=== PATIENT | female | born 1985 | race Caucasian/White ===

== ENCOUNTER 2024-08-27 13:37 | Outpatient (AMB) | payer OTHER, SELFPAY ==
--- NOTE | 2024-08-27 13:40 | MHC.PC.OV ---
Vital Signs 08/27/24 13:47 Height 5 ft 3.5 in Weight 161 lb 3 oz BMI 28.1 BP 104/64 Blood Pressure Location Rt brachial Position Sitting Respiration 12 Pulse 82 Pulse Source Pulse Oximeter Temp 98.4 F Temp Source Oral Pulse Oximetry (%) 100 Oxygen Delivery Method Room Air Intake Visit Reasons: Est. Care Intake Note: New patient visit Customer Care Specialist Required: No Allergies morphine Allergy (Severe, Verified 08/27/24 13:43) Hives Tobacco use date assessed: 08/27/24 Dental Screening Dental Screen Date: 08/27/24 Did you have a dental visit in the last 12 months?: Yes Did you have a dental problem in the last 6 months where you did not have access to dental care?: No Was dental information given to patient?: Patient has dentist HPI Est. Care HPI Details Patient is a 38-year-old female who presents today for a physical exam and to establish care. She says that she has never been diagnosed with anything significantly. 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 She states that for the last year she has had frequent heavy periods that are worse than they ever has been. She says that she bleeds for about 10 days. She has contacted her job developer in his hoping to see her this summer. She is not on any iron. No history of iron-deficiency anemia but does feel tired a lot. General: She does endorse feeling fatigue and states that she does have a lot of life stress but does not know if there is anything else that is happening. 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 She states that she eats healthy and tries to exercise every day with her Peloton. She is frustrated because she is unable to lose weight and says that if anything she appears to be gaining weight. 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 1. Little interest or pleasure in doing things: not at all 2. Feeling down, depressed, or hopeless: not at all 3. Trouble falling or staying asleep, or sleeping too much: several days 4. Feeling tired or having little energy: several days 5. Poor appetite or overeating: several days 6. Feeling bad about yourself - or that you are a failure or have let yourself or your family down: not at all 7. Trouble concentrating on things, such as reading the newspaper or watching television: not at all 8. Moving or speaking so slowly that other people could have noticed. Or the opposite - being so fidgety or restless that you have been moving around a lot more than usual: not at all 9. Thoughts that you would be better off or of hurting yourself in some way: not at all Total score: 3 Depression Screening Interpretation: Negative Depression Screening Done: Yes 44312 - PHQ-9 Billing: Yes Source: Developed by Drs. Tutu Victor, Bell Fuentes, Samuel Bhatia and colleagues, with an educational emilia from [employer]. Thrive Questionnaire Date Thrive assessed: 08/24/24 I am a: Patient What is your living situation today?: I have a steady place to live Within the past 12 months, did the food you bought not last and you didn't have the money to get more?: Never true Within the past 12 months, did you worry whether your food would run out before you got money to buy more?: Never true Do you have trouble paying for medicines?: No Do you have trouble getting transportation to medical appointments?: No Do you have trouble paying your heating and electricity bill?: No Do you have trouble taking care of your child, family member or friend?: No Do you have trouble with day-to-day activities such as bathing, preparing meals, shopping, managing finances, etc.?: No Are you currently unemployed and looking for a job?: No Are you interested in more education?: No Please select the resources that you would like help with: None Currently or been in a relationship where the following occur: No concerns reported THRIVE Score: 0 AUDIT C Alcohol Use Questionnaire (AUDIT-C) 1. How often do you have a drink containing alcohol?: 2-4 times a month 2. How many drinks containing alcohol do you have on a typical day when you are drinking?: 1 or 2 3. How often do you have six or more drinks on one occasion?: Never Total Score: 2 NARCISA-7 AMB Questionnaire NARCISA-7 Feeling nervous, anxious, or on edge: 1 = Several days Not being able to stop or control worryin = Several days Worrying too much about different things: 1 = Several days Trouble relaxin = Several days Being so restless that it is hard to sit still: 0 = Not at all Becoming easily annoyed or irritable: 1 = Several days Feeling afraid as if something awful might happen: 0 = Not at all Total NARCISA-7 score (0-4 normal; 5-9 mild; 10-14 moderate; 15-21 severe): 5 Source: Developed by Drs. Tutu Victor, Bell Fuentes, Samuel Bhatia and colleagues, with an educational emilia from [employer]. Physical exam (Primary Care) Vital Signs: Last Vital Signs Temp 98.4 F 08/27/24 13:47 Pulse 82 08/27/24 13:47 Resp 12 08/27/24 13:47 BP 104/64 08/27/24 13:47 Pulse Ox 100 08/27/24 13:47 Oxygen Delivery Method Room Air 08/27/24 13:47 BMI result Body Mass Index 28.1 Tobacco/Smoking Status: Tobacco use Status Tobacco use date assessed 08/27/24 08/27/24 13:49 Patient Tobacco Use Status Never used Tobacco 08/27/24 13:49 e-Cigarette/Vaping Use Never Used 08/27/24 13:49 PHQ-9: PHQ-9 Score PHQ-9: Total score 3 08/27/24 13:42 Depression Screening Interpretation: Negative Thrive Assessment: Date of Thrive Assessment Date Thrive assessed 08/24/24 08/27/24 13:42 Currently or been in a relationship where the following occur: No concerns reported Const Orientation/consciousness: patient oriented x3 HENMT Ears: hearing grossly normal bilaterally General nose exam: No nasal polyps present Face and sinus: Yes sinuses nontender Mouth: Normal oral and palatal mucosa present Eyes Pupils: Equal, round and reactive pupils present EOM: EOMs intact bilaterally Neck Neck: Yes full ROM and Yes no lymphadenopathy Thyroid: Thyroid normal Lymphatic: no lymphadenopathy noted Chest Chest palpation & inspection: normal inspection of the chest Resp Auscultation: clear to auscultation bilaterally Cardio Rate: regular rate Rhythm: regular rhythm Heart sounds: S1 normal heart sound present and S2 normal heart sound present Peripheral pulses: Peripheral pulses 2+ throughout GI Other: Soft, nontender Inspection: Yes normal to inspection Palpation (GI): Soft to palpation and Other GI palpation findings present (nontender, no cva tenderness) Auscultation: normoactive bowel sounds Rectal Exam - Female: deferred General: Yes no CVA tenderness Back/Spine/Pelvis Other: Nontender Back: no CVA tenderness Skin General skin exam: no rashes or lesions noted Neuro General: patient oriented x3, gait normal and no focal motor deficits Cranial nerves: Yes Equal, round and reactive pupils present Motor exam (neuro): 5/5 motor strength present throughout Sensory Exam: double simultaneous stimulation for sensation normal Coordination: [id number] test normal and Romberg test negative Extrem General: Yes normal to inspection and Yes full ROM Psych Affect: normal affect Attitude: cooperative Thought process: Normal thought process present Thought content: Normal thought content present Insight: Good insight present (Psych) Judgement: Good judgement present (Psych) Coding Level of Care Code New Pt Prev Care 40-64y(97512) Diagnoses Routine general health check-up of defined subpopulation Z00.8 Weight gain R63.5 Menorrhagia N92.0 Fatigue R53.83 Additional Codes PHQ-9 - 70749 - PHQ-9 Billing: Yes ([id number]) Assessment & Plan Assessment & Plan (1) Routine general health check-up of defined subpopulation: Code(s): Z00.8 - Encounter for other general examination Plan: reviewed labs ordered (2) Weight gain: Code(s): R63.5 - Abnormal weight gain Category: Medical Plan: labs ordered encouraged her to increase protein intake, eat less carbs, we discussed electrical unit rebuilder as well (3) Menorrhagia: Code(s): N92.0 - Excessive and frequent menstruation with regular cycle Category: Medical Plan: advised to follow with assistant maintenance manager labs ordered pelvic ultrasound ordered (4) Fatigue: Code(s): R53.83 - Other fatigue Category: Medical Plan: as above Orders: Orders Comprehensive [place]. Panel Fast Today N92.0 - Excessive and frequent menstruation with regular cycle, R63.5 - Abnormal weight gain Hemoglobin A1c Today N92.0 - Excessive and frequent menstruation with regular cycle, R63.5 - Abnormal weight gain, R73.01 - Impaired fasting glucose TSH reflex Free T4 Today N92.0 - Excessive and frequent menstruation with regular cycle, R63.5 - Abnormal weight gain Magnesium Today N92.0 - Excessive and frequent menstruation with regular cycle, R63.5 - Abnormal weight gain Complete Blood Count Auto Diff Today N92.0 - Excessive and frequent menstruation with regular cycle, R63.5 - Abnormal weight gain Lipid Panel Today N92.0 - Excessive and frequent menstruation with regular cycle, R63.5 - Abnormal weight gain Ferritin Today N92.0 - Excessive and frequent menstruation with regular cycle, R63.5 - Abnormal weight gain IRON PROFILE Today N92.0 - Excessive and frequent menstruation with regular cycle, R63.5 - Abnormal weight gain Vitamin B12 and Folate Today N92.0 - Excessive and frequent menstruation with regular cycle, R63.5 - Abnormal weight gain US pelvic and transvaginal Today N92.0 - Excessive and frequent menstruation with regular cycle
--- OUTSIDE RECORDS SUMMARY | 2024-08-27 13:44 | XMS_ITS | Clinical Summary ---
Author Organization [employer] Address [address] [facility] 7 [place] [address] Care Team Providers Care Precision Agriculture Technician Name Role Phone Unavailable Primary Care Provider Unavailabl e Allergies Active Allergy Reactions Criticality Noted Date Comments Morphine 09/27/2022 Medications No known medications Encounters Date Type Department Care Team Description 07/22/2024 11:00 AM EDT Office Visit [facility] DENTAL [address] [place] [address] Dea Klein Accrcain on teeth (Primary Dx); Dental calculus; Encounter for dental examination; Stage 2 grade A localized periodontitis per AAP/EFP 2017 classification from Last 3 Months Social History Tobacco Use Types Packs/Day Years Used Date Smoking Tobacco: Never Passive Smoke Exposure: Past Smokeless Tobacco: Never Tobacco Cessation:Counseling Given: No Comments Unknown Sex and Gender Information Value Date Recorded Sex Assigned at Choose not to disclose 05/2022 9:00 AM EDT Legal Sex Male 5:36 PM EDT Gender Identity Choose not to disclose 9:00 AM EDT Sexual Orientation Choose not to disclose 2022 9:00 AM EDT Plan of Treatment Upcoming Encounters Date Type Department Care Team (Late st Contact Info) Description 02/04/2025 3:00 PM EST Office Visit [facility] DENTAL [address] [place] [address] Ashleigh Proctor Health Maintenance Due Date Last Done Comments Depression Screening 1983 HIV Screening 1983 Lipid Panel 1983 SDOH Screening 1983 Disability Screening 1983 Alcohol/Substance Use Screening 1995 Family Planning (PISQ) 11/24/1998 Hepatitis C Screening 11/24/2001 DTaP/Tdap/Td Vaccines (1 - Tdap) 11/24/2002 Hepatitis B Vaccines (1 of 3 - 19+ 3-dose series) 11/24/2002 Dental X-Ray: Full Mouth 07/02/2023 06/30/2020 COVID-19 Vaccine (1 - 2023-2 5 season) 2023 Influenza Vaccine (#1) 2023 Dental Oral Exam 01/22/2025 07/22/2024, 06/13/2021, 06/30/2020 Dental Prophylaxis 01/22/2025 07/22/2024, 06/13/2021, 12/12/2020 Tobacco Screening 07/22/2025 07/22/2024 Dental X-Ray: Bitewings 07/23/2025 07/23/19 25, 06/30/2020 Zoster Vaccines (1 of 2) 11/24/2033 RSV Patients and Patients Aged 60 years or older (1 - 1-dose 75+ series) 11/24/2058 HIB Vaccines Aged Out No longer eligi ble based on patient's age to complete this topic HPV Vaccines Aged Out No longer eligi ble based on patient's age to complete this topic Hepatitis A Vaccines Aged Out No long er eligible based on patient's age to complete this topic IPV Vaccines Aged Out No longer eligi ble based on patient's age to complete this topic Meningococcal B Vaccine Aged Out No l onger eligible based on patient's age to complete this topic Meningococcal Vaccine Aged Out No peter palomo eligible based on patient's age to complete this topic Pneumococcal Vaccine: Pediatrics (0 to 5 Years) and At-Risk Patients (6 to 49) Years) Aged Out No longer eligible b ased on patient's age to complete this topic RSV under 20 months Aged Out No longe r eligible based on patient's age to complete this topic Rotavirus Vaccines Aged Out No longer eligible based on patient's age to complete this topic Procedures Procedure Name Priority Date/Time Associated Diagnosis Comments Full PROPHYLAXIS - ADULT Routine 025 11:00 AM EDT BITEWINGS - 4 RADIOGRAPHIC IMAGES Routine 07/22/2024 11:00 AM EDT PERIODIC ORAL EVALUATION - ESTABLISHED PATIENT Routine 07/22/2024 11:00 AM EDT INTRAORAL - COMPLETE SERIES OF RADIOGRAPHIC IMAGES Routine 06/30/2020 12:00 AM EDT from Last 3 Months or Most Recently Relevant to Health Maintenance Insurance DENTAL - HSN PARTIAL (MEDICAID)
[2024-08-27 13:47] VITALS: BP 104/64; PULSE 82; RESP 12; TEMP 36.9; O2SAT 100; BMI 28.1
== END 2024-08-27 14:22 | disposition home or self-care (01) ==
LOC: HO.HMCFM 13:38
PROVIDERS: PCP Physician Assistant; Visit Provider Physician Assistant
DX: Z00.00 Encounter for general adult medical examination without abnormal findings (principal); R63.5 Abnormal weight gain; N92.0 Excessive and frequent menstruation with regular cycle; R53.83 Other fatigue

== ENCOUNTER → 2024-08-27 13:37 | Outpatient (BNVA) | payer OTHER, SELFPAY | PROVIDERS: PCP Physician Assistant; Visit Provider Physician Assistant | DX: Z00.00 Encounter for general adult medical examination without abnormal findings (principal); R63.5 Abnormal weight gain; N92.0 Excessive and frequent menstruation with regular cycle; R53.83 Other fatigue | CPT/HCPCS: 96127; 99386 ==

== ENCOUNTER 2024-09-14 07:42 | Outpatient (REF) | payer OTHER, SELFPAY ==
--- OUTSIDE RECORDS SUMMARY | 2024-09-14 07:45 | XMS_ITS | Clinical Summary ---
Author Organization [employer] Address [address] [facility] [address] [place] [address] Care Team Providers Care Educational/Development Assistant Name Role Phone Unavailable Primary Care Provider Unavailabl e Allergies Active Allergy Reactions Criticality Noted Date Comments Morphine 09/27/2022 Medications No known medications Encounters Date Type Department Care Team Description 07/22/2024 11:00 AM EDT Office Visit [facility] DENTAL [address] [place] [address] Dea Klein Accrcain on teeth (Primary Dx); [...] Description 02/04/2025 3:00 PM EST Office Visit [facility] DENTAL [address] [place] [address] Ashleigh Proctor Health Maintenance Due Date Last [...] - 2023-2 5 season) 2023 Influenza Vaccine (Season Ended) 2024 Dental Oral Exam 01/22/2025 07/22/2024, 06/13/2021, 06/30/2020 [...]
[2024-09-14 11:15] LABS: MANUAL DIFF FLAG NO
[2024-09-14 11:24] LABS: Basophils Percent Auto 0.3 % (0-2); Eosinophils Absolute Auto 0.2 X10*3/uL (0.0-0.4); Eosinophils Percent Auto 4.6 % (0-4); Hematocrit 41.4 % (37.0-47.0); Imm Gran Abs Auto 0.02 X10*3/uL (0.00-0.03); Imm Gran Pct Auto 0.6 % (0.0-0.4); Lymphocytes Percent Auto 29.9 % (20-40); Mean Corpuscular HGB Conc 33.8 g/dl (31.0-35.0); Mean Corpuscular Hemoglobin 30.7 pg (27.0-33.0); Mean Corpuscular Volume 90.8 fL (80.0-98.0); Mean Platelet Volume 11.5 fL (9.4-12.3); Monocytes Absolute Auto 0.4 X10*3/uL (0.1-1.2); Monocytes Percent Auto 10.4 % (2-11); Neutrophils Absolute Auto 1.9 x10*3/uL (2.0-8.3); Neutrophils Percent Auto 54.2 % (45-73); Platelet Count 180 X10*3/uL (160-400); Red Blood Count 4.56 X10*6/uL (4.20-5.50); White Blood Count 3.5 X10*3/uL (4.8-10.8)
[2024-09-14 11:35] LABS: Estimated Average Glucose 103 mg/dL; Hemoglobin A1c % 5.2 % (<6.0); Total Hemoglobin (HGBA1C) 3637.2737 umol/L
[2024-09-14 11:44] LABS: Alanine Aminotransferase 15 U/L (0-31); Albumin Level 4.6 g/dL (3.5-5.0); Alkaline Phosphatase 70 U/L (39-117); Anion Gap 10 (12-20); Aspartate Amino Transferase 19 U/L (5-31); Bilirubin Total 0.3 mg/dL (0.0-1.0); Blood Urea Nitrogen 11 mg/dL (9-16); Calcium 9.3 mg/dL (8.4-10.2); Carbon Dioxide 25 mmol/L (22-29); Chloride 108 mmol/L (96-108); Cholesterol 179 mg/dL (<200); Estimated Glomerular Filt Rate > 60; Glucose Fasting 98 mg/dL (60-99); HDL Cholesterol 53 mg/dL (>40); Iron 67 mcg/dL (30-160); LDL Cholesterol Calculated 106 mg/dL (<100); Percent Iron Saturation 23 % (15-50); Potassium 3.7 mmol/L (3.3-5.1); Sodium 139 mmol/L (135-145); Total Iron Binding Capacity 290 mcg/dL (228-428); Total Protein 7.3 g/dL (6.5-8.0); Triglycerides 100 mg/dL (<150); Unsaturated Iron Binding 223 ug/dL
[2024-09-14 12:05] LABS: Ferritin 68 ng/mL (10-250); TSH reflex Free T4 1.03 uIU/mL (0.32-4.0)
[2024-09-14 12:09] LABS: Vitamin B12 319 pg/mL (200-900)
== END 2024-09-14 07:43 | disposition home or self-care (01) ==
LOC: HO.WFDLDS 07:42
PROVIDERS: Visit Provider Physician Assistant
DX: R73.01 Impaired fasting glucose (principal); N92.0 Excessive and frequent menstruation with regular cycle; R63.5 Abnormal weight gain
CPT/HCPCS: 36415; 80053; 80061; 82607; 82728; 82746; 83036; 83540; 83735; 84443; 85025

== ENCOUNTER 2024-11-16 14:49 | Outpatient (REF) | payer OTHER, SELFPAY ==
--- NOTE | ~2024-11-16 | US_ITS ---
EXAMINATION: US PELVIS TRANSABDOMINAL AND TRANSVAGINAL HISTORY: N92.0 - Excessive and frequent menstruation with regular cycle COMPARISON: There are no prior studies available for comparison. TECHNIQUE: Transabdominal and endovaginal real-time 2D cabral-scale ultrasound was performed. FINDINGS: Uterus: The uterus is normal in size, measuring 10.5 x 5.6 x 6.6 cm. Myometrium has a normal echotexture. No fibroids are identified. Endometrium: The endometrial stripe measures 10 mm in thickness. Right ovary: The right ovary measures 4.7 x 3.8 x 3.4 cm. There is a 3.4 x 3.2 x 3.1 cm cystic lesion demonstrating low-level internal echoes and septations, suggestive of a hemorrhagic cyst. Left ovary: The left ovary measures 2.8 x 1.6 x 2.7 cm. The left ovary is normal in size and echotexture. Pelvic fluid: none. US/US pelvic and transvaginal IMPRESSION: 3.4 x 3.2 x 3.1 cm probable right ovarian hemorrhagic cyst. A follow-up examination in 6 weeks, at a different time in the patient's menstrual cycle, is recommended. Electronically signed by: Tutu Ford MD 11/16/2024 03:22 PM EDT RP
--- OUTSIDE RECORDS SUMMARY | 2024-11-16 15:32 | XMS_ITS | Clinical Summary ---
Author Organization [employer] Address [address] [facility] [address] [place] [address] Care Team Providers Care Carpet Layer Helper Name Role Phone Unavailable Primary Care Provider Unavailabl e Allergies Active Allergy Reactions Criticality Noted Date Comments Morphine 09/27/2022 Medications No known medications Social History Tobacco Use Types Packs/Day Years [...] Description 02/04/2025 3:00 PM EST Office Visit [facility] DENTAL [address] [place] [address] Ashleigh Proctor Health Maintenance Due Date Last Done Comments Depression Screening 1983 HIV Screening 1983 Lipid Panel 1983 SDOH Screening 1983 Disability Screening 1983 Alcohol/Substance Use Screening 1995 Family Planning (PISQ) 11/24/1998 HPV Vaccines (1 - 3-dose series) 11/24/1998 Hepatitis C Screening 11/24/2001 DTaP/Tdap/Td Vaccines (1 - Tdap) 11/24/2002 Hepatitis B Vaccines (1 of 3 - 19+ 3-dose series) 11/24/2002 Dental X-Ray: Full Mouth 07/02/2023 06/30/2020 COVID-19 Vaccine (1 - 2023-2 5 season) 2023 Influenza Vaccine (#1) 2024 Dental Oral Exam 01/22/2025 07/22/2024, 06/13/2021, [...] Years) and At-Risk Patients (6 to 49) Years Aged Out No longer eligible b ased [...]
== END 2024-11-16 14:50 | disposition home or self-care (01) ==
LOC: HO.US 14:49
PROVIDERS: PCP Physician Assistant; Visit Provider Physician Assistant
DX: N92.0 Excessive and frequent menstruation with regular cycle (principal)
CPT/HCPCS: 76830; 76856

== ENCOUNTER → 2024-11-16 15:00 | Outpatient (BNV) | payer OTHER, SELFPAY | PROVIDERS: PCP Physician Assistant; Visit Provider Radiology Diagnostic Radiology | DX: N83.291 Other ovarian cyst, right side (principal) | CPT/HCPCS: 76830; 76856 ==

== ENCOUNTER 2024-11-17 09:00 | Outpatient (REF) | payer OTHER, SELFPAY ==
--- OUTSIDE RECORDS SUMMARY | 2024-11-17 09:53 | XMS_ITS | Clinical Summary ---
Author Organization [employer] Address [address] [facility] [address] [place] [address] Care Team Providers Care Direct Chill Casting Operator Name Role Phone Unavailable Primary Care Provider [...] [facility] DENTAL [address] [place] [address] Ashleigh Proctor Health Maintenance Due Date Last [...]
[2024-11-17 11:06] LABS: MANUAL DIFF FLAG NO
[2024-11-17 11:14] LABS: Hematocrit 40.8 % (37.0-47.0); Hemoglobin 13.4 g/dl (12.0-16.0); Imm Gran Abs Auto 0.01 X10*3/uL (0.00-0.03); Imm Gran Pct Auto 0.3 % (0.0-0.4); Lymphocytes Absolute Auto 1.0 X10*3/uL (1.2-4.9); Mean Corpuscular HGB Conc 32.8 g/dl (31.0-35.0); Mean Corpuscular Hemoglobin 29.9 pg (27.0-33.0); Mean Corpuscular Volume 91.1 fL (80.0-98.0); NRBC Abs Auto 0.000 X10*3/uL (0.0-0.012); NRBC Pct Auto 0.0 /100WBC (0.0-0.2); Platelet Count 159 X10*3/uL (160-400); Red Blood Count 4.48 X10*6/uL (4.20-5.50); White Blood Count 3.5 X10*3/uL (4.8-10.8)
== END 2024-11-17 09:01 | disposition home or self-care (01) ==
LOC: HO.WFDLDS 09:00
PROVIDERS: Visit Provider Physician Assistant
DX: D72.819 Decreased white blood cell count, unspecified (principal)
CPT/HCPCS: 36415; 85025

== ENCOUNTER 2024-12-28 15:07 | Outpatient (REF) | payer OTHER, SELFPAY ==
--- NOTE | ~2024-12-28 | US_ITS ---
EXAMINATION: US PELVIS CLINICAL INFORMATION: N83.201 - Unspecified ovarian cyst, right side COMPARISON: November 16, 2024 TECHNIQUE: Ultrasound of the pelvis is performed using both transabdominal and transvaginal transducers along with Doppler. Transvaginal imaging is performed due to inadequate visualization transabdominally. FINDINGS: Uterus: The uterus is anteverted and measures 11 x 4.5 x 5.1 cm. The double wall endometrial thickness is 6 mm. There is a heterogeneous hypoechoic region measuring 17 x 13 x 13 mm in the right upper uterine body consistent with intramural leiomyoma contacting serosa. Adnexa: Both ovaries are visualized. There is normal color flow to the adnexa. There is no ovarian torsion. There is no pelvic ascites or fluid collection. Right ovary measures 1.9 x 1.1 x 1.8 cm. Left ovary measures 2.9 x 1.9 x 2.1 cm. US/US pelvic and transvaginal IMPRESSION: Interval resolution of a hemorrhagic cyst in the right ovary. No further follow-up is indicated. 17 mm leiomyoma is present in the right upper uterine body. Electronically signed by: Joey Olvera MD 12/28/2024 04:43 PM EDT
--- OUTSIDE RECORDS SUMMARY | 2024-12-28 17:14 | XMS_ITS | Encounter Summary ---
Author Organization [employer] Address [address] [facility] [address] [place] [address] Care Team Providers Care Equip Tech Name Role Phone Unavailable Primary Care Provider Unavailabl e Encounter Details Date Type Department Care Team (Latest Contact Info) Description 12/12/2020 Abstract [facility] CONVERSIONS Dental, Provider, DDS Social History Tobacco Use Types Packs/Day Years Used Date Smoking Tobacco: Never Assessed Comments Unknown Sex and Gender Information Value Date Recorded Sex Assigned at Choose not to disclose 05/2022 9:00 AM EDT Legal Sex Male 5:36 PM EDT Gender Identity Choose not to disclose 9:00 AM EDT Sexual Orientation Choose not to disclose 2022 9:00 AM EDT documented as of this encounter Plan of Treatment Upcoming Encounters Date Type Department Care Team (Late st Contact Info) Description 02/04/2025 3:00 PM EST Office Visit [facility] D[facility] [address] [place] [address] Ashleigh Proctor documented as of this encounter Visit Diagnoses Not on filedocumented in this encounter
--- OUTSIDE RECORDS SUMMARY | 2024-12-28 17:14 | XMS_ITS | Clinical Summary ---
Author Organization [employer] Address [address] [facility] [address] [place] [address] Care Team Providers Care Rod Mill Operator Name Role Phone Unavailable Primary Care [...] [facility] DENTAL [address] [place] [address] Ashleigh Proctor Health Maintenance Due Date Last [...] COVID-19 Vaccine (1 - 2023-2 5 season) 2024 Influenza Vaccine (#1) 2024 Dental Oral Exam [...]
== END 2024-12-28 15:08 | disposition home or self-care (01) ==
LOC: HO.US 15:07
PROVIDERS: PCP Physician Assistant; Visit Provider Physician Assistant
DX: N83.201 Unspecified ovarian cyst, right side (principal); N92.0 Excessive and frequent menstruation with regular cycle
CPT/HCPCS: 76830; 76856

== ENCOUNTER → 2024-12-28 15:09 | Outpatient (BNV) | payer OTHER, SELFPAY | PROVIDERS: PCP Physician Assistant; Visit Provider Radiology Diagnostic Radiology | DX: N83.201 Unspecified ovarian cyst, right side (principal) | CPT/HCPCS: 76830; 76856 ==